=== PATIENT | female | born 1950 | race Caucasian/White ===

== ENCOUNTER → 2024-02-17 | Outpatient (CLI) | payer MEDICARE, MEDICAID, SELFPAY | END | disposition home or self-care (01) | PROVIDERS: PCP Registered Nurse Community Health; Referring Provider Urology; Visit Provider Urology | DX: Z53.29 Procedure and treatment not carried out because of patient's decision for other reasons (principal) ==

== ENCOUNTER → 2024-03-30 | Outpatient (CLI) | payer MEDICARE, MEDICAID, SELFPAY ==
[2024-03-30 11:04] LABS: Anion Gap 7 (7-16); BUN/Creatinine Ratio 31 Ratio (12-20); Blood Urea Nitrogen 28 mg/dL (9-23); Calcium 9.7 mg/dL (8.3-10.6); Carbon Dioxide 32.4 mMol/L (20.0-31.0); Chloride 102 mMol/L (98-107); Creatinine (Component) 0.9 mg/dL (0.6-1.3); Glucose 89 mg/dL (74-106); Osmolality,Calculated 285 (275-295); Potassium 4.2 mMol/L (3.4-5.1); Sodium 141 mMol/L (136-145); eGFR > 60 See Note
== END | disposition home or self-care (01) ==
PROVIDERS: PCP Registered Nurse Community Health; Referring Provider Urology; Visit Provider Urology
DX: C64.2 Malignant neoplasm of left kidney, except renal pelvis (principal)
CPT/HCPCS: 36415; 80048

== ENCOUNTER → 2024-04-07 | Outpatient (BNVA) | payer MEDICARE, MEDICAID, SELFPAY | END | disposition home or self-care (01) | PROVIDERS: PCP Registered Nurse Community Health; Referring Provider Registered Nurse Community Health; Visit Provider Urology | DX: N28.89 Other specified disorders of kidney and ureter (principal); N39.46 Mixed incontinence; I10 Essential (primary) hypertension | CPT/HCPCS: 81003; 99212; G0463 ==

== ENCOUNTER 2024-05-19 12:00 | Outpatient (CLI) | payer MEDICARE, MEDICAID, SELFPAY ==
[2024-05-17 13:35] VITALS: BMI 32.2
[2024-05-18 11:35] LABS: Blood Urea Nitrogen 24 mg/dL (9-23); Creatine Kinase 57 U/L (34-171)
[2024-05-18 16:51] LABS: Creatinine (Component) 1.1 mg/dL (0.6-1.3); Estimated Creatinine Clearance 36.1 mL/min (>60); eGFR 53 See Note
[2024-05-19] VITALS (17 sets, daily range): BP systolic 93–148; BP diastolic 51–96; PULSE 77–95; RESP 12–21; TEMP 36.3–36.8; O2SAT 92–99
[2024-05-19] MEDS: SODIUM CHLORIDE 0.9% 500 ML 500 ML 20 ML IV (13:30)
[2024-05-19] MEDS: MIDAZOLAM INJ 1 MG/ML VIAL 2 ML 2 MG IV (13:30)
[2024-05-19] MEDS: fentaNYL CIT INJ 50 mCg/ML AMP 2ML 25 MCG IVP (13:32)
--- NOTE | 2024-05-19 13:45 | XR_ITS ---
Examination: MRI abdomen with intravenous contrast. MRI abdomen without intravenous contrast. Date and time of exam: May 19, 2024 1335 hours INDICATIONS: CT abdomen pelvis December 01, 2023 20 mm solid mass lower pole left kidney Technique: Multiple axial, sagittal and coronal sections of the abdomen obtained. Transverse images, TR 6020, TE 107. T1 weighted transverse images, TR 582, TE 9.5. T2-weighted sagittal images, TR 4000, TE 105. T2-weighted sagittal images, TR 4000, TE 5. Coronal images, TR 4210, TE 107. Axial and coronal images are obtained post 19 cc intravenous injection, gadolinium. Findings: No focal liver or splenic lesion No gallstones No extrahepatic biliary tract dilatation Spleen not enlarged The images are degraded by patient motion Bilateral renal cysts No definite enhancing lower pole left renal mass lesion IMPRESSION: No definite enhancing lower pole left renal mass Recommend this patient return for dedicated renal sonography with the radiologist in attendance
[2024-05-19] MEDS: ONDANSETRON INJ 2 MG/ML INJ 2 ML 4 MG IV (14:45)
--- NOTE | 2024-05-19 14:48 | PC.NURSE ---
1423 patient is awake, alert, breathing unlabored, s/p MRI abdomen with sedation, patient transferred to cathlab bay 3 for recovery. 1445 patient ate sandwitch, had nausea, no vomiting, zofran given
--- NOTE | 2024-05-19 15:35 | PC.NURSE ---
1528 patient awake, alert, no verbal, breathing unlabored, has a brief to void, nausea resolved after zofran administration, able to tolerate ice chips and sips of water with no nausea or vomiting, meets discharge criteria, discharge instructions has been given to patient's caregiver Deena, patient discharged home in wheelchair with all belongings.
== END 2024-05-19 15:28 | disposition home or self-care (01) ==
LOC: SIRX 16:04
PROVIDERS: Radiology Diagnostic Radiology; PCP Registered Nurse Community Health; Referring Provider Urology; Visit Provider Urology
DX: N28.89 Other specified disorders of kidney and ureter (principal)
CPT/HCPCS: 36415; 74183; 82550; 82565; 84520; 99152; A9579; J2250; J2405; J3010; J7040

== ENCOUNTER → 2024-06-30 | Outpatient (BNVA) | payer MEDICARE, MEDICAID, SELFPAY | END | disposition home or self-care (01) | PROVIDERS: PCP Registered Nurse Community Health; Referring Provider Registered Nurse Community Health; Visit Provider Urology | DX: Z09 Encounter for follow-up examination after completed treatment for conditions other than malignant neoplasm (principal) | CPT/HCPCS: 99212; G0463 ==

== ENCOUNTER 2024-07-25 08:11 | Emergency (ER) | payer MEDICARE, MEDICAID, SELFPAY ==
[2024-07-25 08:24] VITALS: BP 138/86; PULSE 92; RESP 20; TEMP 36.6; O2SAT 94; BMI 25.9
--- NOTE | 2024-07-25 08:38 | EDRME_ITS ---
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 Per caregiver patient recently had all her teeth extracted. Patient has been taking high-dose ibuprofen. Patient has not been wanting to eat. I have greeted and performed a focused initial assessment of this patient. Ini tial appropriate labs ordered at this time. A comprehensive ED assessment and evaluation of the patient and analysis of all test and completion of medical decision making process will be conducted by additional ED provider. Chief Complaint: Nausea/Vomiting/Diarrhea Time Seen by Provider: 07/25/24 08:20 Vital signs: Vital Signs Temperature 97.8 F 07/25/24 08:24 Pulse Rate 92 07/25/24 08:24 Respiratory Rate 20 07/25/24 08:24 Blood Pressure 138/86 H 07/25/24 08:24 Pulse Oximetry (%) 94 L 07/25/24 08:24 Oxygen Delivery Method Room Air 07/25/24 08:24
[2024-07-25 09:26] LABS: Prothrombin Time 10.8 Seconds (9.0-12.2)
[2024-07-25 09:36] LABS: Basophils % (Auto) 1 % (0-2.5); Eosinophils # (Auto) 0.3 Thou/mm3 (0.0-0.5); Eosinophils % (Auto) 5 % (0-10); Hematocrit 38.8 % (36.0-46.0); Hemoglobin 13.4 g/dL (12.0-16.0); Immature Granulocytes % (Auto) 0 % (0-0); Immature Granulocytes Auto 0.01 Thou/mm3 (0.00-0.00); Lymphocytes # (Auto) 1.2 Thou/mm3 (1.0-4.8); Lymphocytes % (Auto) 18 % (10-50); Mean Corpuscular HGB Conc 34.5 g/dl (31.0-37.0); Mean Corpuscular Hemoglobin 30.2 pg (25.0-35.0); Mean Corpuscular Volume 88 fL (80-100); Monocytes # (Auto) 0.3 Thou/mm3 (0.0-0.8); Monocytes % (Auto) 5 % (0-12); Neutrophils # (Auto) 4.6 Thou/mm3 (1.8-7.7); Neutrophils % (Auto) 71 % (37-80); Nucleated Red Blood Cell % 0 /100 WBC (0); Platelet Count 173 Thou/mm3 (140-440); RDW Standard Deviation 41.1 fL (36.4-46.3); Red Blood Count 4.43 Miln/mm3 (4.00-5.20); White Blood Count 6.5 Thou/mm3 (3.6-11.0)
[2024-07-25 10:02] LABS: Alanine Aminotransferase 11 U/L (10-49); Albumin, Serum 4.2 gm/dL (3.4-4.8); Albumin/Globulin Ratio 1.6 (1.2-2.2); Alkaline Phosphatase 64 U/L (46-116); Anion Gap 8 (7-16); Aspartate Amino Transferase 18 U/L (0-34); BUN/Creatinine Ratio 20 Ratio (12-20); Bilirubin,Total 0.8 mg/dL (0.3-1.2); Blood Urea Nitrogen 20 mg/dL (9-23); Chloride 108 mMol/L (98-107); Estimated Creatinine Clearance 45.9 mL/min (>60); Globulin 2.6 gm/dL (2.3-3.5); Glucose 104 mg/dL (74-106); Lipase 25 U/L (12-53); Osmolality,Calculated 291 (275-295); Potassium 3.8 mMol/L (3.4-5.1); Sodium 145 mMol/L (136-145); Total Protein 6.8 gm/dL (5.7-8.2); eGFR 59 See Note
--- NOTE | 2024-07-25 12:12 | EDNOTE_ITS ---
<Statement entered by Flavia Vickers MD - 07/26/24 09:01> As co-signing physician, I was present and available for consult prn. I concur with the plan and care as documented by the midlevel provider. ED General RME/HPI General Chief complaint: Nausea/Vomiting/Diarrhea Stated complaint: BLACK DIARRHEA Time Seen by Provider: 07/25/24 08:20 Arrival date/time: 07/25/24 08:11 CC: Black diarrhea HPI ongoing for 24 hours patient is developmentally delayed with a history of diabetes hypertension CKD stage III CAD whose care provider states the patient has had black watery stools for the past 24 hours. Is important to note the patient is on iron pills as well as having recently had t eeth extracted. No other members in her care facility are ill however she does go to a daycare facility where she is exposed to a number of other patients. No nausea or vomiting. Care provider at bedside states the patient is has good p.o. intake. Patient is awake alert looking around. 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 Per caregiver patient recently had all her teeth extracted. Patient has been taking high-dose ibuprofen. Patient has not been wanting to eat. I have greeted and performed a focused initial assessment of this patient. Initial appropriate labs ordered at this time. A comprehensive ED assessment and evaluation of the patient and analysis of all test and completion of medical decision making process will be conducted by additional ED provider. Related Data Home Medications ?Medication ?Instructions ?Recorded ?Confirmed Fluvoxamine Maleate * (LUVOX *) 50 mg PO DAILY ##0 08/1206/30/24 loratadine 10 mg tablet (Claritin) 10 mg PO QDAY #0 ta bs 12/14/14 06/30/24 simvastatin 20 mg tablet (Zocor) 20 mg PO HS #0 tabs 1 06/30/24 amitriptyline 25 mg tablet 25 mg PO HS 12/02/23 amlodipine 5 mg tablet 5 mg PO DAILY 12/02/2306/30 ferrous sulfate 325 mg (65 mg 325 mg PO BIDAC 12/02/23 06/30/24 iron) tablet (FeroSul) hydrocortisone 2.5 % topical cream 1 applic topical BI D PRN 12/02/23 06/30/24 BITES/IRRITATION losartan 50 mg tablet 50 mg PO DAILY 12/02/2306/13 magnesium oxide 400 mg (241.3 mg 400 mg PO DAILY 12/0106/30/24 magnesium) tablet risperidone 1 mg tablet 1 mg PO DAILY 12/02/2306/30 trazodone 100 mg tablet 100 mg PO HS 12/02/23 calcitriol 0.25 mcg capsule 1 mcg PO DAILY 05/19/24 cholecalciferol (vitamin D3) 50 50 mcg PO QDAY 5 06/30/24 mcg (2,000 unit) tablet (D3 DOTS) omeprazole 20 mg capsule,delayed 20 mg PO DAILY 06/30/24 release Allergies Allergy/AdvReac Type Severity Reaction Status Date / Time cephalexin Allergy Unknown Verified 07/25/24 08:12 clindamycin Allergy Unknown Verified 07/25/24 08:12 sulfamethoxazole Allergy Unknown Verified 07/25/24 08:12 trimethoprim Allergy Unknown Verified 07/25/24 08:12 Review of Systems Review of Systems ROS Unobtainable: unobtainable due to mental status Past Medical History Past Medical History NEUROLOGIC: Negative Seizures CARDIAC: Positive Cardiac Disorders (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-leaky valve) and Hypertension (controlled by meds); Negative Congestive Heart Failure RESPIRATORY: Negative Chronic Obstructive Pulmonary Disease (COPD) or Asthma GASTROINTESTINAL: Positive Gastrointestinal Disorders and Ulcer GENITOURINARY: Positive Genitourinary Disorders and Renal Disease MUSCULOSKELETAL: Positive Musculoskeletal Disorders and Arthritis ENDOCRINE: Negative Endocrine Disorders, Diabetes Mellitus Type 1 or Diabetes Mellitus Type 2 HEMATOLOGIC: Negative Blood Disorders or Sickle Cell Disease PSYCHO/SOCIAL: Positive Depression (controlled with meds) OTHER HISTORY: Negative Blood Transfusions, Anesthesia Reactions or Cancer Surgical History SURGICAL: Negative Cardiac Surgery, Abdominal Surgery or Joint Replacement (ankle pins surgery) Social History SMOKING STATUS: Never smoker SUBSTANCE USE: does not use ED Exam Narrative Physical exam: [General: Appears not in any acute distress Head normocephalic HEENT: Eyes pupils are PERRLA EOMs are intact although the subsystems of HEENT are within acceptable limits Neck is supple nontender Chest equal chest rise nontender to palpation Respiratory: Clear to auscultation no wheezes crackles or rubs CV: Rate rhythm is regular no murmurs rubs or clicks Abdomen is soft nontender no masses positive bowel sounds all 4 quadrants Back: No CVA tenderness no spinous process tenderness from cervical spine thoracic and lumbar spine Skin: Intact no petechiae rash induration ulceration or crepitus Extremities: Moving all extremity against resistance cap refill less than 2 seconds neurosensory intact Neuro: Awake alert oriented x3 Glascow coma 15 no focal deficits] Course Course Course Narrative: Laboratory results are wholly unremarkable, the patient has no electrolyte imbalances or anemia. At this time comfortable discharging the patient home with diarrhea I suspect is viral in nature however the care provider was advised to watch her closely if there is a persistence in his diarrhea for more than 5 to 7 days to return the emergency room as there may be a suspicion of C. difficile. Quality Measures none Orders Category Date Time Status CBC Stat Lab 07/25/24 09:03 Completed Comprehensive Metabolic Panel Stat Lab 07/25/24 09:03 Completed Lipase Stat Lab 07/25/24 09:03 Completed PT [Prothrombin Time with INR] Stat Lab 07/25/24 09:03 Completed Type and Screen Stat Lab 07/25/24 09:03 Completed Urinalysis, C/S if Indicated Stat Lab 07/25/24 08:40 Ordered Vital Signs Vital signs: Vital Signs Temperature 97.8 F 07/25/24 08:24 Pulse Rate 92 07/25/24 08:24 Respiratory Rate 20 07/25/24 08:24 Blood Pressure 138/86 H 07/25/24 08:24 Pulse Oximetry (%) 94 L 07/25/24 08:24 Oxygen Delivery Method Room Air 07/25/24 08:24 Discharge Plan Plan Patient Disposition: HOME (Self Care) Patient condition on transfer: Stable Prescriptions/Referrals Prescriptions/Med Rec: No Action Fluvoxamine Maleate * (LUVOX *) 50 MG tablet 50 mg PO DAILY Qty: 0 simvastatin [Zocor] 20 MG tablet 20 mg PO HS Qty: 0 loratadine [Claritin] 10 MG tablet 10 mg PO QDAY Qty: 0 omeprazole 20 mg capsule,delayed release(DR/EC) 20 mg PO DAILY calcitriol 0.25 mcg capsule 1 mcg PO DAILY Rx Instructions: take 4 capsules once daily cholecalciferol (vitamin D3) [D3 DOTS] 50 mcg (2,000 unit) tablet 50 mcg PO QDAY amitriptyline 25 mg tablet 25 mg PO HS amlodipine 5 mg tablet 5 mg PO DAILY Patient Comments: TAKE 1 TABLET BY MOUTH EVERY DAY AT NIGHT losartan 50 mg tablet 50 mg PO DAILY Patient Comments: TAKE 1 TABLET DAILY risperidone 1 mg tablet 1 mg PO DAILY trazodone 100 mg tablet 100 mg PO HS magnesium oxide 400 mg (241.3 mg magnesium) tablet 400 mg PO DAILY ferrous sulfate [FeroSul] 325 mg (65 mg iron) tablet 325 mg PO BIDAC Rx Instructions: [employer] hydrocortisone 2.5 % cream 1 applic TOPICAL BID PRN (Reason: BITES/IRRITATION) Referrals: Martha Balbuena FNP [Primary Care Provider] - In 1 week Problem List Clinical Impression: Diarrhea Patient/Caregiver Discharge Instructions Other Activity Instructions:: Continue to monitor the diarrhea, if it is persistent over 5 to 6 days and unrelenting return the emergency room for concern of C. difficile. At this time laboratory results indicate there is no anemia, no significant electrolyte imbalances that was suggested dehydration. It would be important to review to see if the patient had any antibiotics in the last 3 to 6 months if so that heightens the concern for C. difficile. Encourage plenty of fluids follow-up with the primary care doctor. Education Materials: Self-Care for Vomiting and Diarrhea Print Language: Arabic Stand Alone Forms: Valeria Award Info., Work/School Release, Patient Portal Info Letter JESENIA/KELLY Supervising Physician JESENIA/KELLY Supervising Physician: Yeyo Shine ENP [facility] Clinical Information Provided by: patient and guardian Medical Records reviewed [facility] Meds/Rx considered, not ordered None Labs/Rad/Tests considered, not ordered None Labs Labs: Interpreted by wa Lab(s) Interpretation(s): CBC shows no acute leukocytosis anemia thrombocytopenia Coags within acceptable limits CMP shows a chloride of 108 all other electrolytes within acceptable limits no renal impairment transaminitis or T. bili elevation.
[2024-07-25 12:28] VITALS: BP 128/84; PULSE 72; O2SAT 99
== END 2024-07-25 12:28 | disposition home or self-care (01) ==
PROVIDERS: Nurse Practitioner Family; Emergency Provider Emergency Medicine; PCP Registered Nurse Community Health
DX: R19.7 Diarrhea, unspecified (principal); I25.10 Atherosclerotic heart disease of native coronary artery without angina pectoris; N18.32 Chronic kidney disease, stage 3b; I12.9 Hypertensive chronic kidney disease with stage 1 through stage 4 chronic kidney disease, or unspecified chronic kidney disease; E78.5 Hyperlipidemia, unspecified; F32.A Depression, unspecified; E11.22 Type 2 diabetes mellitus with diabetic chronic kidney disease
CPT/HCPCS: 36415; 80053; 81001; 83690; 85025; 85610; 86850; 86900; 86901; 99283

== ENCOUNTER 2024-08-04 08:00 | Day surgery (SDC) | payer MEDICARE, MEDICAID, SELFPAY ==
[2024-08-03 13:34] VITALS: BMI 32.1
[2024-08-04] VITALS (9 sets, daily range): BP systolic 96–149; BP diastolic 54–100; PULSE 76–92; RESP 13–22; TEMP 36.3–36.8; O2SAT 91–95; BMI 28.8
[2024-08-04] MEDS: DiphenhydrAMINE INJ 50 MG/ML VIAL 25 MG IVP (09:27)
[2024-08-04] MEDS: SODIUM CHLORIDE 0.9% 500 ML 500 ML 20 ML IV (09:27)
[2024-08-04] MEDS: fentaNYL CIT INJ 50 mCg/ML AMP 2ML (ASD USE ONLY) IVP (09:30)
[2024-08-04] MEDS: MIDAZOLAM INJ 1 MG/ML VIAL 2 ML (ASD USE ONLY) 2 MG IVP (09:30)
--- NOTE | 2024-08-04 09:58 | SUR.PHASEII ---
Received with Oxymask at 10 liters. Snoring noted. Respositioned. Monitored. began titrating O2 down. Fluids open. continue to monitor.
--- NOTE | 2024-08-04 10:13 | SUR.PHASEII ---
Opens eyes to verbal. able to take fluids. Transitioned to NC at 3L.
== END 2024-08-04 10:35 | disposition home or self-care (01) ==
PROVIDERS: PCP Registered Nurse Community Health; Referring Provider Specialist; Visit Provider Specialist
PROC: (CPT 43239; principal; 2024-08-04 09:00)
DX: K31.89 Other diseases of stomach and duodenum (principal); K25.9 Gastric ulcer, unspecified as acute or chronic, without hemorrhage or perforation; K29.50 Unspecified chronic gastritis without bleeding
CPT/HCPCS: 43239; J1200; J2250; J3010; J7040

== ENCOUNTER → 2024-08-08 | Outpatient (BNVA) | payer MEDICARE, MEDICAID, SELFPAY | END | disposition home or self-care (01) | PROVIDERS: PCP Registered Nurse Community Health; Referring Provider Registered Nurse Community Health; Visit Provider Urology | DX: N28.1 Cyst of kidney, acquired (principal); R32 Unspecified urinary incontinence; Z87.440 Personal history of urinary (tract) infections; I10 Essential (primary) hypertension; E78.00 Pure hypercholesterolemia, unspecified | CPT/HCPCS: 99212; G0463 ==